=== PATIENT | male | born 1985 | race Caucasian/White ===

== ENCOUNTER 2018-03-30 18:24 | Emergency (ER) | payer BC ==
[2018-03-30 18:44] VITALS: BP 131/67
--- NOTE | 2018-03-30 19:02 | ED ---
Medical Screening - HPI Summary HPI Summary: 32 yrold male with the complaint of left foot arch and heel pain for two weeks without injury. Denies fever, chills, swelling, redness. 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 Also complains of right ear pain. pain is moderate, and external canal feels irritated. No drainage. No change in hearing. No uri symptoms. - History of Current Complaint Chief Complaint: UCLowerExtremity Stated Complaint: LEFT FOOT PAIN, RIGHT EAR PAIN Time Seen by Provider: 03/30/18 18:39 PMH/Surg Hx/FS Hx/Imm Hx Endocrine/Hematology History: Denies: Hx Diabetes, Hx Thyroid Disease Cardiovascular History: Denies: Hx Congestive Heart Failure, Hx Deep Vein Thrombosis, Hx Hypertension , Hx Myocardial Infarction, Hx Pacemaker/ICD Respiratory History: Reports: Hx Asthma - He last uses his albuterol inhaler around his exercise. Denies: Hx Chronic Obstructive Pulmonary Disease (COPD), Hx Lung Cancer, Hx Pneumonia, Hx Pulmonary Embolism GI History: Denies: Hx Gall Bladder Disease, Hx Gastrointestinal Bleed, Hx Ulcer, Hx Urosepsis History: Denies: Hx Kidney Stones, Hx Renal Disease Musculoskeletal History: Denies: Hx Scoliosis Sensory History: Denies: Hx Hearing Aid Neurological History: Denies: Hx Dementia, Hx Headaches, Hx Migraine, Hx Seizures, Hx Transient Ischemic Attacks (TIA), Other Neuro Impairments/Disorders Psychiatric History: Denies: Hx Anxiety, Hx Depression, Hx Panic Disorder, Hx Schizophrenia, Hx Bipolar Disorder - Surgical History Surgery Procedure, Year, and Place: LEFT Carpal Tunnel Release; Lymph NOde removed from Neck; TONSILECTOMY, HIATAL HERNIA SURGERY Infectious Disease History: Yes Infectious Disease History: Reports: 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 Denies: Traveled Outside the [place] in Last 30 Days - Family History Known Family History: Positive: None - Social History Alcohol Use: Occasionally Alcohol Amount: once a week Substance Use Type: Reports: None Smoking Status (MU): Never Smoked Tobacco Review of Systems Positive: Ear Ache - right Positive: Other - left foot pain All Other Systems Reviewed And Are Negative: Yes Physical Exam Triage Information Reviewed: Yes Vital Signs On Initial Exam: Initial Vitals Temp Pulse Resp BP Pulse Ox 98.3 F 67 14 131/67 100 03/30/18 18:39 03/30/18 18:39 03/30/18 18:39 03/30/18 18:39 03/30/18 18:39 Vital Signs Reviewed: Yes Appearance: Positive: Well-Appearing, No Pain Distress Skin: Positive: Warm, Skin Color Reflects Adequate Perfusion Eyes: Positive: EOMI ENT: Positive: Pharynx normal, TMs normal - external ear canal on right with slight erythema. No drainage. Respiratory/Lung Sounds: Positive: Clear to Auscultation Cardiovascular: Positive: RRR Abdomen Description: Negative: Distended Musculoskeletal: Positive: Strength/ROM Intact, Other - no edema, no redness, no bruising to the left foot. He has good DP and PT pulses. Slight tenderness over the plantar fascia medial arch foot and to heel. Achilles tendon non tender. Diagnostics - Vital Signs Vital Signs Temp Pulse Resp BP Pulse Ox 03/30/18 18:39 98.3 F 67 14 131/67 100 - Laboratory Lab Statement: Any lab studies that have been ordered have been reviewed, and results considered in the medical decision making process. - Radiology left foot Xray Interpretation: No Acute Changes Radiology Interpretation Completed By: Radiologist Course/Dx - Course Course Of Treatment: 32 yr old with heel,plantar fascia pain. Instructions for plantar fasciitis. - Diagnoses Provider Diagnoses: Plantar fasciitis of left foot, Heel pain, Otitis externa Discharge - Sign-Out/Discharge Documenting (check all that apply): Discharge/Admit/Transfer - Discharge Plan Condition: Good Disposition: HOME Prescriptions: Neomyc/Polym/HC 1% OTIC SUSP* [Cortisporin Otic Susp 1%*] 4 drop RIGHT EAR QID # 1 btl Patient Education Materials: Plantar Fasciitis Exercises (GEN), Plantar Fasciitis (ED), Otitis Externa (ED) Referrals: Angie Wu MD [Primary Care Provider] - 2 Days Mook Ortiz DPM [Doctor of Podiatric Medicine] - - Billing Disposition and Condition Condition: GOOD Disposition: Home
--- NOTE | 2018-03-30 19:21 | RAD ---
INDICATION: Left foot injury. TECHNIQUE: 3 views of the left foot were obtained. FINDINGS: The bones are in normal alignment. No fracture is seen. Joint spaces appear maintained. IMPRESSION: NO EVIDENCE FOR FRACTURE.
== END 2018-03-30 20:03 | disposition home or self-care (01) ==
LOC: UCCORT 18:24
DX: M72.2 Plantar fascial fibromatosis (principal); M25.572 Pain in left ankle and joints of left foot; H60.91 Unspecified otitis externa, right ear
CPT/HCPCS: 99212; G0463

== ENCOUNTER 2019-03-08 14:25 | Emergency (ER) | payer BC ==
[2019-03-08 14:46] VITALS: BP 127/85
--- NOTE | 2019-03-08 14:54 | UC ---
Lower Extremity/Ankle HPI - HPI Summary HPI Summary: 33-year-old male presents with injury to his right foot. States injury occurred just prior to arrival. He was stepping out of his truck, missed stepped, and accidentally caused an inversion injury. Reports bruising and swelling to the top of his foot. States he has been able to walk and bear weight with some pain. Denies numbness or tingling. - History of Current Complaint Stated Complaint: RIGHT ANKLE INJURY Time Seen by Provider: 03/08/19 14:40 Hx Obtained From: Patient Pain Intensity: 5 - Allergies/Home Medications Allergies/Adverse Reactions: Allergies Allergy/AdvReac Type Severity Reaction Status Date / Time No Known Allergies Allergy Verified 03/08/19 14:42 Home Medications: Home Medications Ibuprofen TAB* [Motrin TAB* 400 MG] 400 mg PO Q6H PRN 03/08/19 [History Confirmed 03/08/19] PMH/Surg Hx/FS Hx/Imm Hx Previously Healthy: Yes - Denies significant PMH Other History Of: Negative For: HIV, Hepatitis B, Hepatitis C - Surgical History Surgical History: None Surgery Procedure, Year, and Place: LEFT Carpal Tunnel Release; Lymph NOde removed from Neck; TONSILECTOMY, HIATAL HERNIA SURGERY - Family History Known Family History: Positive: Non-Contributory - Social History Occupation: Employed Full-time Lives: With Family Alcohol Use: Occasionally Alcohol Amount: once a week Substance Use Type: None Smoking Status (MU): Former Smoker When Did the Patient Quit Smoking/Using Tobacco: 2011 - Immunization History Most Recent Tetanus Shot: UNKNOWN Review of Systems All Other Systems Reviewed And Are Negative: Yes Skin: Positive: Bruising Respiratory: Positive: Negative Cardiovascular: Positive: Negative Gastrointestinal: Positive: Negative Genitourinary: Positive: Negative Motor: Negative: Weakness Neurovascular: Negative: Decreased Sensation Musculoskeletal: Positive: Other: - See HPI Neurological: Positive: Negative Is Patient Immunocompromised?: No Physical Exam - Summary Physical Exam Summary: GENERAL APPEARANCE: Well developed, well nourished, alert and cooperative, and appears to be in no acute distress. CARDIAC: Normal S1 and S2. No S3, S4 or murmurs. Rhythm is regular. There is no peripheral edema, cyanosis or pallor. Extremities are warm and well perfused. Capillary refill is less than 2 seconds. Peripheral pulses intact. LUNGS: Clear to auscultation without rales, rhonchi, wheezing or diminished breath sounds. ABDOMEN: Positive bowel sounds. Soft, nondistended, nontender. No guarding or rebound. No masses or hepatosplenomegally. MUSKULOSKELETAL: Normal muscular development. Limping gait. EXTREMITIES: Ecchymosis and edema to the lateral aspect of the right foot with tenderness over the proximal 4th and 5th metatarsals without gross deformity. Circulation and sensation intact. SKIN: Skin normal color, texture and turgor. Triage Information Reviewed: Yes Vital Signs: Initial Vital Signs Temp 98.3 F 03/08/19 14:43 Pulse 67 03/08/19 14:43 Resp 16 03/08/19 14:43 BP 127/85 03/08/19 14:43 Pulse Ox 99 03/08/19 14:43 Vital Signs Reviewed: Yes Diagnostics - Radiology No standard instances Radiology Interpretation Completed By: Radiologist Summary of Radiographic Findings: Order Information: FOOT RIGHT 3+ VWS. Accession Number: [id number]. CPT: 89811. Indication: Right foot pain. 3 views of the right foot are reviewed. There is no fracture or dislocation. No other bone or joint abnormality is identified. Special attention was paid to the fifth metatarsal base. IMPRESSION: No fracture of the right foot is noted Lower Extremity Course/Dx - Course Course Of Treatment: 33-year-old male presents with injury to his right foot. States injury occurred just prior to arrival. He was stepping out of his truck, missed stepped, and accidentally caused an inversion injury. Reports bruising and swelling to the top of his foot. States he has been able to walk and bear weight with some pain. Denies numbness or tingling. Afebrile. VSS. Exam revealed ecchymosis and edema to the lateral aspect of the right foot with tenderness over the proximal 4th and 5th metatarsals without gross deformity. Circulation and sensation intact. X-ray was negative for fracture. An JOSELUIS wrap and CAM boot were applied by the RN. Normal circulation and sensation pre- and post-application. Recommending conservative treatment for a right foot sprain including OTC analgesics and RICE. He is to follow up with orthopedic surgery in 5-7 days if no improvement in symptoms. Anticipatory guidance and warning symptoms were reviewed with the patient. Verbalizes understanding and agrees with POC. - Differential Dx/Diagnosis Differential Diagnosis/HQI/PQRI: Contusion, Fracture (Closed), Sprain Provider Diagnosis: Right foot sprain Discharge - Sign-Out/Discharge Documenting (check all that apply): Patient Departure All imaging exams completed and their final reports reviewed: Yes - Discharge Plan Condition: Stable Disposition: HOME Patient Education Materials: Foot Sprain (ED) Forms: *Work Release Referrals: Angie Wu MD [Primary Care Provider] - Alex Newell MD [Medical Doctor] - 5 Days Additional Instructions: The x-ray performed in the clinic today showed no evidence of a fracture. I suspect that you have a sprain of the foot. Rest the foot as much as possible. You may continue to walk and bear weight as tolerated. Use the CAM boot when you are up and ambulating. You may remove for bed and showering. Wear until you are pain-free. Use the JOSELUIS wrap to help reduce swelling. Apply ice to the affected area for 15-20 minutes at least 4 times a day to help with the pain and swelling. Elevate the foot to help reduce swelling. Take acetaminophen (Tylenol) or ibuprofen (Advil, Motrin) according to directions as needed for pain. Follow up with orthopedic surgeon in 5-7 days if symptoms do not improve. Seek immediate medical attention if you have severe pain not managed with pain medication, you are unable to walk or bear any weight, develop numbness or tingling in the foot or toes, or have any worsening of symptoms. - Billing Disposition and Condition Condition: STABLE Disposition: Home - Attestation Statements Provider Attestation: Per institutional requirements, I have reviewed the chart, however, I was not consulted specifically or made aware of this patient by the midlevel provider. I did not personally evaluate, interact with , or disposition this patient.
== END 2019-03-08 15:30 | disposition home or self-care (01) ==
LOC: UCCORT 14:25
DX: S93.601A Unspecified sprain of right foot, initial encounter (principal); Z87.891 Personal history of nicotine dependence; X50.0XXA Overexertion from strenuous movement or load, initial encounter; Y92.9 Unspecified place or not applicable
CPT/HCPCS: 99212; G0463